=== PATIENT | male | born 1945 | race Caucasian/White ===

== ENCOUNTER → 2016-08-19 | Day surgery (SDC) | payer OTHER ==
[~2016-08-19] MED LIST: AMBIEN10 MG PO; APIDRA; APIDRA100 U/ML SQ; ASPIRIN PO; ASPIRIN81 M1 PO; ASPIRIN81 M2 PO; ASPIRIN81 MG PO; AUGMENTIN875 MG PO; BUDEPRION XL300 MG PO; CARAFATE1 G PO; COMBIVENT MININEB; COZAAR PO; CRESTOR PO; CRESTOR10 MG PO; CRESTOR5 MG PO; CYMBALTA PO; DEPO-TESTOTERO100 MG IM; DULOXETINE HCL60 MG PO; EXELON4.6 MG EXT; FLEXERIL PO; FLONASE16 GM; GINKGO BILOBA120 M1 PO; HUMULIN R100 UNIT/1; INDERAL LA PO; INDERAL40 MG DOB; INSULIN PUMP R1 EACH SUBQ; LORTAB 5/500 TA1 TA2 PO; LOVAZA1 G PO; LOW DOSE ASPIRI81 M1 PO; Lovaza; MICARDIS40 MG PO; MIRAPEX; MIRAPEX0.25 MG DOB; MIRAPEX0.25 MG PO; MULTIVITAMIN1 UDCAP PO; NEILMED SINUS R1 KIT NS; NEXIUM PO; NORPRAMIN25 MG PO; OMEGA-3100 MG PO; OXYCODONE-ACET1 EACH PO; PAXIL PO; PERCOCET PO; PROTONIX PO; PULMICORT200 MCG/AE INH; SINGULAIR PO; SYMBICORT INH; TOPAMAX50 MG PO; WELLBUTRIN SR PO; ZOMIG2.5 MG PO; ZYRTEC10 M2 PO; [UNRECOGNIZED DRUG - OTHER]; [UNRECOGNIZED DRUG - OTHER]
--- NOTE | ~2016-08-19 | OR ---
Unit #: [id number] #: [id number] Patient: QUIANA GOLDEN [id number] [address] [place], [place] [address] [id number] O MR#: [id number] NAME: QUIANA GOLDEN ROOM: Date of Procedure: 08/19/2016 Admission Date: 08/19/2016 Surgeon: Surya Colindres M.D. : 1945 Attending Physician: Surya Colindres M.D. Referring Physician: Surya Colindres M.D. Primary Care Physician: Remy Villarreal M.D. OPERATIVE REPORT PRIMARY CARE PHYSICIAN Dr. Remy Villarreal. PREOPERATIVE DIAGNOSES Dysphagia and dyspepsia. PROCEDURES PERFORMED Upper gastrointestinal endoscopy and biopsy. POSTOPERATIVE DIAGNOSES The patient had moderate prepyloric antral erosive gastritis; however, no esophageal stricture or ring or esophagitis was seen. RECOMMENDATIONS The patient is advised to increase the dose of Nexium to 40 mg p.o. b.i.d. He will be followed up in the office in 8 to 10 weeks' time. If he is still symptomatic, a swallow evaluation will be done. SEDATION USED MAC. DESCRIPTION OF PROCEDURE Following detailed explanation of the potential risks and complications of an upper endoscopy, namely perforation, bleeding, and complications related to sedation, the patient was brought to GI lab and laid in the left lateral decubitus position. Lubricated tip of the Olympus video upper endoscope was passed through bite block into the proximal esophagus under direct vision. The entire esophageal mucosa was examined and appeared normal. Z-line was nicely demarcated, there being no esophagitis or hiatus hernia. The scope was then advanced into the gastric cavity and the latter was insufflated. Mucosa of the fundus, body, and antrum examined. The patient was noted to have moderate prepyloric antral erosions and erythema indicating antral gastritis. Pylorus was intubated with visualization of the normal duodenal bulb and second and third part of the duodenum. Upon withdrawal and retroflexion, incisura, cardia, and greater curve examined and biopsy obtained from the antrum for CLOtest. The scope was then withdrawn in the distal esophagus. The entire esophageal mucosa was examined all the way up to pharynx. No additional findings noted. The scope was then withdrawn all the way up to pharynx and no additional findings noted. The patient tolerated the procedure without any postprocedure complications. Unit #: [id number] #: [id number] Patient: QUIANA GOLDEN Dictated by... Isabel Gregg/shelby TD: 08/19/2016 22:47 JOB #: [id number] CC: Aman/christiano Please Delete OPERATIVE REPORT Page 1 of 1 X Surya Colindres MD PROCEDURE OPERATIVE NOTE
== END | disposition home or self-care (01) ==
LOC: COPS 07:00
PROVIDERS: Internal Medicine Gastroenterology
PROC: 0DB78ZX Excision of Stomach, Pylorus, Via Natural or Artificial Opening Endoscopic, Diagnostic (ICD-10-PCS; principal; 2016-08-19 07:00)
DX: K29.60 Other gastritis without bleeding (principal); R13.10 Dysphagia, unspecified; K21.9 Gastro-esophageal reflux disease without esophagitis; E11.9 Type 2 diabetes mellitus without complications; Z79.4 Long term (current) use of insulin; I10 Essential (primary) hypertension; F32.9 Major depressive disorder, single episode, unspecified; G47.30 Sleep apnea, unspecified; M19.90 Unspecified osteoarthritis, unspecified site; Z79.899 Other long term (current) drug therapy; Z87.891 Personal history of nicotine dependence; Z98.890 Other specified postprocedural states; Z96.653 Presence of artificial knee joint, bilateral; Z88.8 Allergy status to other drugs, medicaments and biological substances
CPT/HCPCS: 82947; 87077; J2250

== ENCOUNTER → 2016-11-27 | Outpatient (CLI) | payer OTHER ==
--- NOTE | ~2016-11-27 | CR240 ---
[facility] A Service of [facility] RADIOLOGY TEXT RESULTS PATIENT: QUIANA GOLDEN LOCATION: [facility] : [birth year] UNIT #: [id number] AGE: [address]: LOUIE CABRERA APRN SEX: M ORDER DR: [id number] [facility] [address] [place], [place] [address] [id number] O MR#: [id number] Acc #: [id number] NAME: QUIANA GOLDEN : 1945 SEX: M STUDY DATE/TIME: 11/27/2016 10:31 UNIT: [facility] ROOM: STUDY DESCRIPTION: CR Swallowing Fx W Cine or Vid Attending Physician: Louie Cabrera Aprn Referring Physician: Louie Cabrera Aprn Ordering Physician: Louie Cabrera Aprn Primary Care Physician: Remy Villarreal M.D. MEDICAL IMAGING REPORT This report is preliminary unless electronic signature is present EXAM Modified swallow study with fluoroscopy, 11/27/2016. HISTORY Dysphagia. TECHNIQUE Single spot fluoroscopic image was obtained during modified barium swallow study performed by speech pathologist. Fluoroscopy time 0.7 minutes was documented. FINDINGS There is only transient spill with thin liquids mixed with peaches with vacular pooling. No penetration or aspiration was witnessed at any time, and normal oral phase of swallow was demonstrated. Please refer to Speech Pathology report for additional findings and dietary recommendations. Dictated by... Freida Baeza M.D. THIS IS AN ELECTRONICALLY VERIFIED REPORT Freida Baeza M.D. at 11/28/2016 9:39 AM CHANDRAKANT/chika TD: 11/27/2016 15:51 JOB #: [id number] MEDICAL IMAGING REPORT Page 1 of 1 COPY
== END | disposition home or self-care (01) ==
LOC: CRAD 09:13
DX: R13.10 Dysphagia, unspecified (principal)
CPT/HCPCS: 74230; 92611; G8996-GN; G8997-GN; G8998-GN